=== PATIENT | female | born 1960 | race Caucasian/White ===

== ENCOUNTER 2017-04-27 13:36 | Observation (INO) | payer MEDICAID ==
[2017-04-27] MEDS ORDERED: ZOFRAN INJ 4 MG VIAL IVP PRN (13:59)
[2017-04-27] MEDS: NS 1000 ML 1,000 ML IV SCH (14:21)
[2017-04-27 14:38] LABS: BASOPHILS # (AUTO) 0.1 X10^3/uL (0.0-0.1); BASOPHILS % (AUTO) 0.9 % (0.2-1.0); EOSINOPHILS # (AUTO) 0.4 x10^3/uL (0.0-0.2); EOSINOPHILS % (AUTO) 5.1 % (0.9-2.9); HEMATOCRIT 34.6 % (36.0-47.0); HEMOGLOBIN 11.4 g/dL (12.0-16.0); LYMPHOCYTES # (AUTO) 1.9 X10^3/uL (1.3-2.9); LYMPHOCYTES % (AUTO) 23.3 % (21.0-51.0); MEAN CORPUSCULAR VOLUME 75.6 fL (80.0-100.0); MEAN PLATELET VOLUME 8.2 fL (7.4-11.0); MONOCYTES # (AUTO) 0.5 x10^3/uL (0.3-0.8); NEUTROPHILS # (AUTO) 5.3 x10^3/uL (2.2-4.8); NEUTROPHILS % (AUTO) 64.7 % (42.0-75.0); PLATELET COUNT 307 X10^3/uL (150.0-450.0); RED BLOOD COUNT 4.57 X10^6/uL (3.5-5.4); RED CELL DISTRIBUTION WIDTH 15.6 % (11.6-16.5); WHITE BLOOD COUNT 8.1 X10^3/uL (3.6-10.0)
[2017-04-27 14:44] LABS: CALCIUM 8.8 mg/dL (8.5-10.1); CARBON DIOXIDE 25.5 mmol/L (21-32); COR CA(FOR HYPOALB) 9.6 mg/dL (8.5-10.1); CREATININE 1.21 mg/dL (0.55-1.02); TOTAL PROTEIN 7.2 g/dL (6.4-8.2)
[2017-04-27] MEDS ORDERED: PREVNAR 13 IM ONE (14:55)
[2017-04-27 15:04] VITALS: BMI 49.3
[2017-04-27 15:12] LABS: HYPOCHROMASIA SLIGHT; PLATELET MORPHOLOGY COMMENT NORMAL (NORMAL)
[2017-04-27] MEDS: PROTONIX INJ 40 MG VIAL IVP SCH ×2 (15:46→20:42)
[2017-04-27 17:23] LABS: BILIRUBIN,URINE NEGATIVE (NEGATIVE); BLOOD/HEMOGLOBIN,URINE 1+ (NEGATIVE); GLUCOSE, URINE NEGATIVE (NEGATIVE); KETONES,URINE 1+ (NEGATIVE); LEUKOCYTE ESTERASE ,URINE 2+ (NEGATIVE); NITRITES,URINE NEGATIVE (NEGATIVE); PROTEIN,URINE 1+ (NEGATIVE); UROBILINOGEN,URINE NORMAL (NORMAL)
--- NOTE | 2017-04-27 17:53 | CT ---
HISTORY: Abdominal pain and nausea and vomiting Study: CT abdomen and pelvis without contrast Comparison: None Technique: Multiple axial images of the abdomen and pelvis were obtained from the lung bases to the pubic symph ysis without the administration of IV contrast. Sagittal and coronal reformations were provided. Findings: The visualized portions of the lung bases are unremarkable. The liver, spleen, pancreas, kidneys, a nd adrenal glands are unremarkable in their CT appearance. The gallbladder is surgically absent. The re is no biliary dilatation.. No significant mesenteric lymphadenopathy or stranding can be observe d. No free fluid or free air is seen within the abdomen. There is a left ventral abdominal hernia at the level of the anterior iliac crest through a defect in the abdominal wall measuring 2.5 centim eters in width . The hernia contains peritoneal fat. The appendix is surgically absent. The uterus is normal in size. There is no abnormal adnexal mass.. The colon is unremarkable. Specifically, th ere is no diverticulosis noted within the sigmoid colon. The urinary bladder is grossly unremarkable . The bony structures are grossly intact. IMPRESSION: 1. Left ventral abdominal hernia containing peritoneal fat Reported By:
[2017-04-27 17:55] LABS: APPEARANCE,URINE CLEAR (CLEAR); COLOR,URINE DARK YELLOW (YELLOW); RBC,URINE RARE /HPF (NEGATIVE)
[2017-04-27 17:56] LABS: BACTERIA,URINE TRACE /HPF (NEGATIVE); CALCIUM OXALATE CRYSTALS,UR MODERATE /HPF (NEGATIVE); SQUAMOUS EPITHELIAL CELL,UR RARE /HPF (NEGATIVE)
[2017-04-27] MEDS: NORCO 10/325 TAB PO PRN (19:32)
[2017-04-27] MEDS: NEURONTIN CAP 300 MG PO SCH (20:38)
[2017-04-27] MEDS: LOPRESSOR TAB 25 MG PO SCH (20:38)
[2017-04-27] MEDS: DIABETA PO SCH (20:42)
[2017-04-27] MEDS: WELLBUTRIN SR 150 MG (BID) PO SCH (20:42)
[2017-04-27] MEDS: VISTARIL PO SCH (20:42)
[2017-04-27] MEDS: PROVENTIL NEB TX 0.083% 2.5MG/ 3ML NEB SCH (20:56)
[2017-04-27] MEDS: PULMICORT NEB TX 0.5 MG NEB SCH (20:56)
[2017-04-27] MEDS ORDERED: ZOCOR TAB 20 MG PO SCH (21:00)
[2017-04-27] MEDS ORDERED: MORPHINE SULFATE INJ 2 MG IVP ONE (21:00)
[2017-04-27] MEDS ORDERED: DESYREL PO SCH (21:00)
[2017-04-27] MEDS: [UNRECOGNIZED DRUG - OTHER] PO SCH (21:03)
[2017-04-27] MEDS ORDERED: MORPHINE SULFATE INJ 2 MG ONE (21:06)
[2017-04-27] MEDS: CLEOCIN PO SCH (21:10)
[2017-04-27] MEDS: FLEXERIL TAB 10 MG PO SCH (21:10)
[2017-04-27] MEDS: XANAX PO SCH (21:10)
[2017-04-28] MEDS: CLEOCIN PO SCH ×2 (06:15→14:36)
[2017-04-28] MEDS: NS 1000 ML 1,000 ML IV SCH ×2 (06:16→09:45)
[2017-04-28] MEDS: FLEXERIL TAB 10 MG PO SCH ×2 (06:16→14:37)
[2017-04-28] MEDS: XANAX PO SCH ×2 (06:16→14:37)
[2017-04-28] MEDS ORDERED: GLUCOPHAGE ONE (08:13)
[2017-04-28] MEDS: PROTONIX INJ 40 MG VIAL IVP SCH (08:38)
[2017-04-28] MEDS: VISTARIL PO SCH ×3 (08:40→17:45)
[2017-04-28] MEDS: WELLBUTRIN SR 150 MG (BID) PO SCH (08:41)
[2017-04-28] MEDS: NEURONTIN CAP 300 MG PO SCH ×3 (08:41→17:45)
[2017-04-28] MEDS: LOPRESSOR TAB 25 MG PO SCH (08:41)
[2017-04-28] MEDS: DIABETA PO SCH (08:43)
[2017-04-28] MEDS: [UNRECOGNIZED DRUG - OTHER] PO SCH (08:45)
[2017-04-28] MEDS ORDERED: CIPRO TAB 500 MG PO ONE (08:48)
[2017-04-28] MEDS: NORCO 10/325 TAB PO PRN (08:58)
[2017-04-28] MEDS ORDERED: FOLIC ACID TAB 1 MG PO SCH (09:00)
[2017-04-28] MEDS ORDERED: ASPIRIN 81 MG CHEWTAB PO SCH (09:00)
[2017-04-28] MEDS ORDERED: ZYLOPRIM PO SCH (09:00)
[2017-04-28] MEDS ORDERED: GLUCOPHAGE PO SCH (09:00)
[2017-04-28] MEDS ORDERED: ZyrTEC TAB 10 MG PO SCH (09:00)
[2017-04-28] MEDS ORDERED: SYNTHROID 150 mcg TAB PO SCH (09:00)
[2017-04-28] MEDS ORDERED: ZOLOFT PO SCH (09:00)
[2017-04-28] MEDS: PULMICORT NEB TX 0.5 MG NEB SCH (09:06)
[2017-04-28] MEDS: PROVENTIL NEB TX 0.083% 2.5MG/ 3ML NEB SCH ×3 (09:06→16:26)
[2017-04-28] MEDS ORDERED: NS 1000 ML 1,000 ML ONE (09:34)
--- NOTE | 2017-04-28 10:53 | RAD ---
HISTORY: Nonhealing left foot wound Study: Left foot 2 views Comparison: None Findings: The bones are osteopenic. There is no evidence for fracture, lytic, or blastic lesion. No erosive ar thritis is present. Arthritic changes present in the tibiotalar joint likely degenerative in origin. There are no areas of abnormal periosteal reaction. No soft tissue gas is identified. There are no plain film findings to suggest osteomyelitis however if osteomyelitis is a strong clinical considera tion MRI with and without contrast would be of further diagnostic value. IMPRESSION: Osteopenia Degenerative arthritic change tibiotalar joint Reported By:
[2017-04-28] MEDS ORDERED: D50W ABBOJECT SYR ONE (11:40)
[2017-04-28] MEDS ORDERED: D50W ABBOJECT SYR IV ONE ×2 (11:51→14:58)
[2017-04-28] MEDS: D5 1/2 NS 1000 ML 1,000 ML IV SCH ×2 (11:55→12:06)
--- NOTE | 2017-04-28 15:41 | DR.H&P ---
H&P - History & Physical for Day of: H&P Date: 04/28/17 - Chief Complaint Chief Complaint: nausea, vomiting, and pain - Allergies Allergies/Adverse Reactions: Allergies Allergy/AdvReac Type Severity Reaction Status Date / Time MS No Known Drug Allergy Allergy Verified 04/27/17 13:55 [No Known Drug Allergy] - History of Present Illness History of Present Illness: 56 Y/O W/F ADMITTED WITH C/O UPPER ABD PAIN, NAUSEA VOMITTING ,AND FOOD INTOLERENCE. - Past Medical History Past Medical History: Arthritis, COPD, Diabetes, GERD, Hypertension Additional Medical History: MORBID OBESITY - Past Surgical History Surgical History: Appendectomy, Cholecystectomy, Ortho Surgery, Other - Family History Family Medical History: Diabetes Mellitus, Cancer, CA, Coronary Artery Disease, Heart Failure, Hypertension - Social History Does patient currently use any type of tobacco product: No Have you used tobacco products in the last 12 months: No Type of Tobacco Use: None Does any household member use tobacco: No Alcohol Use: None Drug Use: None - Medications Home Medications: Albuterol Sulfate [Proventil HFA Inhaler 6.7 gm] 90 mcg INH QID 04/27/17 [ History Confirmed 04/27/17] Allopurinol 300 mg PO DAILY 04/27/17 [History Confirmed 04/27/17] Alprazolam [Xanax] 0.5 mg PO TID 04/27/17 [History Confirmed 04/27/17] Aspirin [Aspirin 81 mg Chewtab] 81 mg PO DAILY 04/27/17 [History Confirmed 04/27] Bupropion HCl [Bupropion HCl Sr] 150 mg PO BID 04/27/17 [History Confirmed 04/27] Cetirizine HCl [All Day Allergy] 10 mg PO DAILY 04/27/17 [History Confirmed ] Ciprofloxacin-Ciprofloxacin Hc [Ciprofloxacin ER 500 mg] 1 tab PO BID 04/27/17 [ History Confirmed 04/27/17] Clindamycin HCl 300 mg PO TID 04/27/17 [History Confirmed 04/27/17] Cyclobenzaprine HCl [FLEXERIL 10 MG *] 10 mg PO TID 04/27/17 [History Confirmed 04/27/17] Fluticasone-Salmeterol [Advair Diskus 250-50 Mcg/Dose 14-dose] 1 puff IN BID [History Confirmed 04/27/17] Folic Acid [Folic Acid Tab 1 mg] 1 mg PO DAILY 04/27/17 [History Confirmed 04/27] Furosemide [Lasix] 40 mg PO BID 04/27/17 [History Confirmed 04/27/17] Gabapentin 900 mg PO QID 04/27/17 [History Confirmed 04/27/17] Glyburide 5 mg PO BID 04/27/17 [History Confirmed 04/27/17] Hydrocodone-Acet 10/325 mg [[place] 10/325 Tab] 1 tab PO Q4-6H PRN 04/27/17 [ History Confirmed 04/27/17] Hydroxyzine Pamoate 50 mg PO QID 04/27/17 [History Confirmed 04/27/17] Insulin Glargine (Lantus) [LANTUS INSULIN 10 ML VIAL *] 95 units SC HS 04/27/17 [History Confirmed 04/27/17] Levothyroxine Sodium 150 mcg PO DAILY 04/27/17 [History Confirmed 04/27/17] Meloxicam [Mobic Tab 15 mg] 15 mg PO DAILY 04/27/17 [History Confirmed 04/27/17] Metformin HCl [Glucophage] 500 mg PO DAILY 04/27/17 [History Confirmed 04/27/17] Metoprolol Tartrate [Lopressor Tab 25 mg] 12.5 mg PO BID 04/27/17 [History Confirmed 04/27/17] Nystatin (Topical) [Nystatin] 100,000 unit EX TID 04/27/17 [History Confirmed ] Omeprazole [Prilosec] 40 mg PO BID 04/27/17 [History Confirmed 04/27/17] Potassium Chloride [Potassium Chloride ER] 20 meq PO BID 04/27/17 [History Confirmed 04/27/17] Promethazine HCl [Phenergan] 25 mg VA Q4-6H PRN 04/27/17 [History Confirmed ] Ranitidine HCl [Ranitidine [address]] 300 mg PO BID 04/27/17 [History Confirmed 04/27/17] Sertraline HCl [Zoloft] 50 mg PO DAILY 04/27/17 [History Confirmed 04/27/17] Simvastatin 20 mg PO DAILY 04/27/17 [History Confirmed 04/27/17] Sucralfate [Carafate] 1 gm PO ACHS 04/27/17 [History Confirmed 04/27/17] Trazodone HCl [Desyrel] 150 mg PO HS 04/27/17 [History Confirmed 04/27/17] - Review of Systems Constitutional: Weakness, Malaise Eyes: No Symptoms Reported ENT: No Symptoms Reported Respiratory: Cough, Wheezing Cardiovascular: No Symptoms Reported Gastrointestinal: Nausea, Vomiting, Abdominal Pain Genitourinary: No Symptoms Reported Musculoskeletal: Back Pain, Foot Pain Skin: Wound Neurological: No Symptoms Reported - Physical Exam Vital Signs: Temperature 96.9 F Pulse Rate [Left Brachial] 86 Pulse Rate 72 Respiratory Rate 18 Blood Pressure [Left Arm] 91/54 O2 Sat by Pulse Oximetry 95 Oriented: Normal Eyes: Normal Ear: Normal Nose: Normal Throat: Normal Respiratory: Clear Throughout, LLL Exp. Wheeze Cardiovascular: Normal : Normal Auscultation: Bowel Sounds: Normal Palpation: Normal Tenderness: Normal, Epigastric Musculoskeletal: Foot Mood Description: Calm Affect: Normal Speech Pattern: Clear - Assessment/Plan (1) Epigastric abdominal pain Status: Resolved Plan: PLAN TO ADMIT. AMDISSION LABS, CBC, CMP, UA, . IV HYDRATION, PPI THERAPY, PAIN AND NAUSEA CONTROL, NPO PAST MIDNIGHT FOR EGD. RESP CONSULT FOR COPD MANAGEMENT AND BLOOD SUGAR CONTROL , RESUME HOME MEDS.
[2017-04-28] MEDS ORDERED: DIPRIVAN VIAL 20 ML ONE (15:56)
[2017-04-28 17:25] VITALS: BP 99/55
[2017-04-28] MEDS ORDERED: HEP LOCK NEONATE 10 UNITS/1 ML 5ML IVF ONE (18:22)
[2017-04-28] MEDS ORDERED: SNACK - Diabetic Appropriate PO SCH (20:00)
== END 2017-04-28 18:25 | disposition home or self-care (01) ==
LOC: OBS 13:36
PROVIDERS: ADMIT Internal Medicine; ATTEND Internal Medicine
PROC: 3E0234Z Introduction of Serum, Toxoid and Vaccine into Muscle, Percutaneous Approach (ICD-10-PCS; 2017-04-27)
PROC: 0DB68ZX Excision of Stomach, Via Natural or Artificial Opening Endoscopic, Diagnostic (ICD-10-PCS; principal; 2017-04-28 17:00)
DX: R11.2 Nausea with vomiting, unspecified (principal); R10.84 Generalized abdominal pain; M85.88 Other specified disorders of bone density and structure, other site; J44.9 Chronic obstructive pulmonary disease, unspecified; E11.65 Type 2 diabetes mellitus with hyperglycemia; K21.9 Gastro-esophageal reflux disease without esophagitis; Z79.4 Long term (current) use of insulin; I10 Essential (primary) hypertension; R10.13 Epigastric pain; B96.5 Pseudomonas (aeruginosa) (mallei) (pseudomallei) as the cause of diseases classified elsewhere; D64.89 Other specified anemias; R94.4 Abnormal results of kidney function studies; R26.89 Other abnormalities of gait and mobility; Z23 Encounter for immunization; K29.00 Acute gastritis without bleeding; K44.9 Diaphragmatic hernia without obstruction or gangrene
CPT/HCPCS: 36415; 73630; 74176; 80053; 81001; 82150; 83690; 85025; 87070; 87075; 87077; 87086; 87186; 87205; 94640; 97535; C9113; Q0177; S0106; 90670; A4217; G0378; J1642; J2270; J2405; J3490; J7042; J7613; J7626

== ENCOUNTER 2021-05-07 08:41 | Observation (INO) ==
[2021-05-07] MEDS ORDERED: NAROPIN 0.75% EPI ONE (10:27)
[2021-05-07] MEDS ORDERED: ANCEF 1 GRAM IV PREMIX* 2 G/100 ML BAG IV ONE (10:42)
[2021-05-07] MEDS ORDERED: LR 1000 ML IV 1,000 ML IV ONE (10:42)
[2021-05-07 10:55] VITALS: BMI 45.7
[2021-05-07] MEDS ORDERED: FENTANYL INJ 250 mcg ONE (14:45)
[2021-05-07] MEDS ORDERED: MARCAINE 0.25% INJ ONE (15:14)
[2021-05-07] MEDS ORDERED: SUPRANE ONE (15:20)
[2021-05-07] MEDS ORDERED: APRESOLINE INJ 20 MG VIAL ONE ×2 (15:20→15:28)
[2021-05-07] MEDS ORDERED: VERSED ONE (15:20)
[2021-05-07] MEDS ORDERED: ZOFRAN INJ 4 MG VIAL ONE (15:20)
[2021-05-07] MEDS ORDERED: DIPRIVAN VIAL ONE (15:20)
[2021-05-07] MEDS ORDERED: HYDROGEN PEROXIDE 3% ONE (17:20)
[2021-05-07] MEDS ORDERED: PHENERGAN INJ 25 MG IM PRN (17:34)
[2021-05-07] MEDS ORDERED: REGLAN INJ 10 MG VIAL IVP PRN (17:34)
[2021-05-07] MEDS ORDERED: ZOFRAN INJ 4 MG VIAL IVP PRN ×2 (17:34→17:55)
[2021-05-07] MEDS ORDERED: BARHEMSYS INJ IVP PRN (17:34)
[2021-05-07] MEDS ORDERED: BENADRYL INJ 50 MG VIAL IVP PRN (17:34)
[2021-05-07] MEDS: DILAUDID INJ IVP PRN ×4 (17:55→18:10)
[2021-05-07] MEDS: NS 1000 ML 1,000 ML IV SCH (18:50)
[2021-05-07] MEDS: COLACE CAP 100 MG PO SCH (20:06)
[2021-05-07] MEDS: PERCOCET TAB 5/325 MG PO PRN ×2 (20:06→23:45)
[2021-05-07] MEDS: DUONEB 0.5 MG/3 MG (3 mL) NEB SCH (20:40)
[2021-05-07] MEDS: PULMICORT NEB TX 0.5 MG NEB SCH (20:40)
[2021-05-08] MEDS: PERCOCET TAB 5/325 MG PO PRN ×2 (03:43→21:00)
[2021-05-08 05:42] LABS: CALCIUM 8.3 mg/dL (8.5-10.1); CARBON DIOXIDE 23.1 mmol/L (21-32); CREATININE 1.37 mg/dL (0.55-1.02)
[2021-05-08] MEDS: NS 1000 ML 1,000 ML IV SCH ×2 (06:59→21:00)
[2021-05-08] MEDS ORDERED: TORADOL 30 MG VIAL ONE (09:21)
[2021-05-08] MEDS ORDERED: TORADOL 30 MG VIAL IVP ONE ×2 (09:22→13:54)
[2021-05-08] MEDS: PULMICORT NEB TX 0.5 MG NEB SCH ×2 (09:37→21:20)
[2021-05-08] MEDS: DUONEB 0.5 MG/3 MG (3 mL) NEB SCH ×4 (09:37→21:20)
--- NOTE | 2021-05-08 14:55 | PCM.PROG ---
Progress Note Progress Note for Day of Date of Exam: 05/08/21 Subjective Subjective: Resting in bed c/o pain; unable to wt bear x 8 weeks; no cp, sob, abd pain, n/v/d. Past Medical Family Social History Past Med/Fam/Surg Hx: No changes since H&P Allergies: Allergies No Known Drug Allergies Allergy (Verified 05/07/21 10:31) Review of Systems ROS: No change since H&P Vital Signs and I&O's Vital Signs: Temperature 98.6 F Pulse Rate [Right Radial] 104 Pulse Rate 101 Respiratory Rate 20 Blood Pressure [Left Arm] 138/62 Blood Pressure 152/63 O2 Sat by Pulse Oximetry 97 Intake and Output: Intake & Output 05/05/21 05/06/21 05/07/21 05/08/21 23:59 23:59 23:59 23:59 Intake Total 2043 / 2043 574 / 574 Output Total 300 / 300 Balance 1743 / 1743 574 / 574 Physical Exam Oriented: Normal Eyes: Normal Ear: Normal Respiratory: Normal Cardiovascular: Normal Auscultation: Bowel Sounds: Normal Musculoskeletal: Right (rle in cast and elevated ) Mood Description: Calm Speech Pattern: Clear and Appropriate Laboratory and Diagnostics Result Diagrams: 05/08/21 04:25 05/08/21 04:25 Labs: Laboratory Sodium 137 mmol/L (136-145) 05/08/21 04:25 Corrected Sodium 139 mmol/L (136-145) 05/08/21 04:25 Potassium 4.7 mmol/L (3.5-5.1) 05/08/21 04:25 Chloride 103 mmol/L (98-107) 05/08/21 04:25 Carbon Dioxide 23.1 mmol/L (21-32) 05/08/21 04:25 BUN 18 mg/dL (7-18) 05/08/21 04:25 Creatinine 1.37 mg/dL (0.55-1.02) H 05/08/21 04:25 Est GFR (MDRD) Af Amer 51 (>60) L 05/08/21 04:25 Est GFR (MDRD) Non-Af 42 (>60) L 05/08/21 04:25 Glucose 171 mg/dL (65-99) H 05/08/21 04:25 Calcium 8.3 mg/dL (8.5-10.1) L 05/08/21 04:25 Plan (1) Hypertension, essential: Status: Acute Plan: Controlled; continue current mgmt. (2) Hypothyroidism, acquired: Status: Acute (3) Hyperlipidemia, mixed: Status: Acute (4) Type 2 diabetes mellitus: Status: Acute Plan: Follow and cover sugars as needed.
[2021-05-08] MEDS ORDERED: LOVENOX INJ 40 MG SYR SC ONE (16:33)
[2021-05-08] MEDS: LOVENOX INJ 40 MG SYR SC SCH (16:34)
[2021-05-08] MEDS: COLACE CAP 100 MG PO SCH (20:59)
[2021-05-08] MEDS: TYLENOL 325 MG TAB PO PRN (21:31)
[2021-05-09] MEDS: PERCOCET TAB 5/325 MG PO PRN (03:23)
[2021-05-09] MEDS: TYLENOL 325 MG TAB PO PRN ×2 (03:23→09:15)
[2021-05-09 08:10] VITALS: BP 196/90
[2021-05-09] MEDS: DUONEB 0.5 MG/3 MG (3 mL) NEB SCH (09:09)
[2021-05-09] MEDS: PULMICORT NEB TX 0.5 MG NEB SCH (09:09)
[2021-05-09] MEDS: LOVENOX INJ 40 MG SYR SC SCH (09:15)
--- NOTE | 2021-05-09 11:48 | W.DIS.FURT ---
Summary of Discharge Discharge Summary of Date Date of Exam: 05/09/21 Admission Diagnosis Hospital Course: Pt with degenerative arthritic change tibiotalar joint admitted for surgery on the rt foot. He did well with surgery and was subsequently discharged with appropriate follow up. Vital Signs: Vital Signs (72 hours) 05/07/21 10:32 05/07/21 17:45 05/07/21 17:50 Temperature 98.1 F 97 F L Pulse Rate 72 84 87 Pulse Rate [Right Radial] Respiratory Rate 18 16 16 Blood Pressure 198/74 113/58 131/68 Blood Pressure [Left Arm] O2 Sat by Pulse Oximetry 100 100 100 05/07/21 17:55 05/07/21 18:00 05/07/21 18:05 Temperature Pulse Rate 89 88 84 Pulse Rate [Right Radial] Respiratory Rate 16 16 16 Blood Pressure 144/65 151/63 142/70 Blood Pressure [Left Arm] O2 Sat by Pulse Oximetry 100 100 95 05/07/21 18:10 05/07/21 18:15 05/07/21 18:30 Temperature 98.0 F Pulse Rate 86 84 Pulse Rate [Right Radial] 88 Respiratory Rate 16 16 20 Blood Pressure 144/65 152/63 Blood Pressure [Left Arm] 146/67 O2 Sat by Pulse Oximetry 95 95 98 05/07/21 18:45 05/07/21 19:00 05/07/21 19:15 Temperature 98.1 F Pulse Rate Pulse Rate [Right Radial] 95 H 90 98 H Respiratory Rate 20 20 20 Blood Pressure Blood Pressure [Left Arm] 145/65 151/69 165/72 O2 Sat by Pulse Oximetry 98 96 98 05/07/21 19:30 05/07/21 20:06 05/07/21 20:30 Temperature 97.9 F Pulse Rate Pulse Rate [Right Radial] 94 H 96 H Respiratory Rate 20 20 20 Blood Pressure Blood Pressure [Left Arm] 146/65 147/75 O2 Sat by Pulse Oximetry 98 99 05/07/21 20:40 05/07/21 21:06 05/07/21 21:30 Temperature 98.0 F Pulse Rate 92 H Pulse Rate [Right Radial] 96 H Respiratory Rate 20 20 Blood Pressure Blood Pressure [Left Arm] 148/67 O2 Sat by Pulse Oximetry 98 98 05/07/21 22:30 05/07/21 23:30 05/07/21 23:45 Temperature 97.6 F Pulse Rate Pulse Rate [Right Radial] 80 81 Respiratory Rate 20 20 19 Blood Pressure Blood Pressure [Left Arm] 96/50 102/50 O2 Sat by Pulse Oximetry 97 98 05/08/21 00:45 05/08/21 03:43 05/08/21 04:00 Temperature 99.0 F Pulse Rate Pulse Rate [Right Radial] 103 H Respiratory Rate 20 21 18 Blood Pressure Blood Pressure [Left Arm] 161/80 O2 Sat by Pulse Oximetry 97 05/08/21 04:43 05/08/21 08:00 05/08/21 09:37 Temperature 98.5 F Pulse Rate 101 H Pulse Rate [Right Radial] 118 H Respiratory Rate 21 20 Blood Pressure Blood Pressure [Left Arm] 121/56 O2 Sat by Pulse Oximetry 97 98 05/08/21 10:33 05/08/21 11:03 05/08/21 12:00 Temperature 98.6 F Pulse Rate Pulse Rate [Right Radial] 104 H Respiratory Rate 18 18 20 Blood Pressure Blood Pressure [Left Arm] 138/62 O2 Sat by Pulse Oximetry 97 05/08/21 13:30 05/08/21 15:18 05/08/21 15:48 Temperature Pulse Rate 99 H Pulse Rate [Right Radial] Respiratory Rate 20 20 Blood Pressure Blood Pressure [Left Arm] O2 Sat by Pulse Oximetry 99 05/08/21 16:00 05/08/21 17:15 05/08/21 20:00 Temperature 99.0 F 98.9 F Pulse Rate 105 H Pulse Rate [Right Radial] 108 H 109 H Respiratory Rate 20 18 Blood Pressure Blood Pressure [Left Arm] 145/67 196/85 O2 Sat by Pulse Oximetry 98 98 94 L 05/08/21 21:00 05/08/21 21:20 05/08/21 21:31 Temperature Pulse Rate 101 H Pulse Rate [Right Radial] Respiratory Rate 20 20 Blood Pressure Blood Pressure [Left Arm] O2 Sat by Pulse Oximetry 98 05/08/21 22:00 05/08/21 22:05 05/08/21 22:31 Temperature Pulse Rate Pulse Rate [Right Radial] Respiratory Rate 20 20 Blood Pressure Blood Pressure [Left Arm] 181/77 O2 Sat by Pulse Oximetry 05/09/21 00:00 05/09/21 03:23 05/09/21 04:00 Temperature 98.0 F 99.4 F Pulse Rate Pulse Rate [Right Radial] 104 H 93 H Respiratory Rate 20 20 18 Blood Pressure Blood Pressure [Left Arm] 144/72 151/82 O2 Sat by Pulse Oximetry 95 97 05/09/21 04:23 05/09/21 08:00 05/09/21 09:09 Temperature 99.8 F H Pulse Rate 105 H Pulse Rate [Right Radial] 96 H Respiratory Rate 20 18 Blood Pressure Blood Pressure [Left Arm] 196/90 O2 Sat by Pulse Oximetry 94 L 93 L 05/09/21 09:15 05/09/21 10:15 Temperature Pulse Rate Pulse Rate [Right Radial] Respiratory Rate 20 20 Blood Pressure Blood Pressure [Left Arm] O2 Sat by Pulse Oximetry Labs: Laboratory Last Values Sodium 137 mmol/L (136-145) 05/08/21 04:25 Corrected Sodium 139 mmol/L (136-145) 05/08/21 04:25 Potassium 4.7 mmol/L (3.5-5.1) 05/08/21 04:25 Chloride 103 mmol/L (98-107) 05/08/21 04:25 Carbon Dioxide 23.1 mmol/L (21-32) 05/08/21 04:25 BUN 18 mg/dL (7-18) 05/08/21 04:25 Creatinine 1.37 mg/dL (0.55-1.02) H 05/08/21 04:25 Est GFR (MDRD) Af Amer 51 (>60) L 05/08/21 04:25 Est GFR (MDRD) Non-Af 42 (>60) L 05/08/21 04:25 Glucose 171 mg/dL (65-99) H 05/08/21 04:25 Calcium 8.3 mg/dL (8.5-10.1) L 05/08/21 04:25 Impression: Feeling well this morning and "ready to go yesterday"; denies cp, sob, abd pain, n/v/d. A/O x 4, speech wnl; rle elevated on pillow; rrr, cta bilaterally anteriorly. Reason For Visit: LEFT TALECTOMY WITH HIND FOOT AND MID FOOT FUSION Discharge Diagnosis All Active Problems (Updated 05/09/21 @ 11:43 by Penelope Vasquez) Type 2 diabetes mellitus (Chronic) Hyperlipidemia, mixed (Chronic) Hypothyroidism, acquired (Chronic) Hypertension, essential (Chronic) Plan of Treatment: Continue with present treatment and follow up plan. Pt is to keep follow up appointment as instructed and take medications as ordered. Discharge Medications Discharge Medications: No Known Drug Allergies Allergy (Verified 05/07/21 10:31) CONTINUE taking the following medications hydroxyzine HCl 50 mg PO QID PRN 05/07/21 [History] sucralfate 1 g PO QID 05/07/21 [History] New Prescriptions enoxaparin [Lovenox] 40 mg SUBCUT DAILY #30 ml 05/09/21 [Rx] ondansetron HCl [Zofran] 8 mg PO BID PRN #30 tab 05/09/21 [Rx] oxycodone-acetaminophen [Percocet] 1 tab PO Q4H PRN #36 tab MDD 4 05/09/21 [Rx] Discharge Plan Discharge Plan Hospital Course: Pt with degenerative arthritic change tibiotalar joint admitted for surgery on the rt foot. He did well with surgery and was subsequently discharged with appropriate follow up. Patient Disposition: HOME HEALTH SERVICE Condition: Stable Health Concerns: Post Hospitalization: new medications and changes needed to prevent readmission or further decline. Pt educated and given instructions on all concerns. Care Plan Goals: Problem: Pain/Alteration in Comfort Goal: Improve/ Resolve Pain; Achieve Pain Tolerance Instructions: Take pain medications as prescribed. Contact your primary care provider if your pain is unrelieved or worsens. Follow up with primary care provider as directed. Plan of Treatment: Continue with present treatment and follow up plan. Pt is to keep follow up appointment as instructed and take medications as ordered. Prescriptions: New enoxaparin [Lovenox] 40 mg/0.4 mL Syringe 40 mg SUBCUT DAILY Qty: 30 RF: 0 ondansetron HCl [Zofran] 4 mg Tablet 8 mg PO BID PRNQty: 30 RF: 0 oxycodone-acetaminophen [Percocet] 5-325 mg Tablet 1 tab PO Q4H MDD 4 PRNQty: 36 RF: 0 No Action omeprazole 20 MG capsule,delayed release(DR/EC) 40 mg PO BID RF: 0 aspirin 81 MG tablet,chewable 81 mg PO DAILY RF: 0 potassium chloride 20 MEQ tablet extended release 20 meq PO BID RF: 0 furosemide 40 MG tablet 40 mg PO BID RF: 0 metformin 500 MG tablet 500 mg PO BID RF: 0 Lantus U-100 Insulin 100 UNITS/ML solution 100 units SC PRN PRNRF: 0 trazodone 50 MG tablet 150 mg PO HS RF: 0 glyburide 5 MG tablet 5 mg PO BID RF: 0 meloxicam 15 MG tablet 15 mg PO DAILY RF: 0 alprazolam [Xanax] 0.5 MG tablet 0.5 mg PO BID RF: 0 simvastatin 20 MG tablet 20 mg PO DAILY RF: 0 levothyroxine 150 MCG tablet 175 mcg PO DAILY RF: 0 gabapentin 300 MG capsule 900 mg PO QID RF: 0 folic acid 1 MG tablet 1 mg PO DAILY RF: 0 albuterol sulfate [Proventil HFA] 108 MCG/ACT HFA aerosol inhaler 90 mcg INH PRN PRNRF: 0 metoprolol tartrate 25 MG tablet 25 mg PO BID RF: 0 sucralfate 1 gram Tablet 1 g PO QID RF: 0 hydroxyzine HCl 50 mg Tablet 50 mg PO QID PRNRF: 0 Follow ups/Referrals Follow ups/Referrals: EDISON COLE [Primary Care Provider] - 1 WEEK Instructions Instructions: Arthroscopic Ankle Fusion, Care After Stand Alone Forms: Excuse From Work or School, Precautions for COVID19, Patient Portal, Social Distancing
[2021-05-09] MEDS: NS 1000 ML 1,000 ML IV SCH (11:57)
== END 2021-05-09 12:35 | disposition home health service (06) ==
LOC: SURG1 08:41 → MED/SURG 08:41 → EDSTATUS 14:45 → MED/SURG 18:39
PROVIDERS: ADMIT Podiatrist; ATTEND Obstetrics & Gynecology Obstetrics
PROC: MIDFOOT (2021-05-07 14:55)
DX: E03.8 Other specified hypothyroidism; M21.542 Acquired clubfoot, left foot; R52 Pain, unspecified; I10 Essential (primary) hypertension; E11.65 Type 2 diabetes mellitus with hyperglycemia; E78.2 Mixed hyperlipidemia; M21.6X2 Other acquired deformities of left foot

== ENCOUNTER 2024-04-12 11:14 | Inpatient (IN) ==
--- NOTE | 2024-04-12 12:35 | NOTE.SOAP ---
Soap Note Note for Day of Date of Exam: 04/12/24 Subjective Data Subjective Data: 63F wellknown to our services for a left heel wound, she came to the office today for an arterial doppler. The wound worsened in size and presentation. Her SANTOSH of her LLE was 2.15 and her foot is very cold. She was recommended to come to the hospital for further evaluation and possible vascular intervention. She is experiencing pain from her posterior hip down to her foot. Objective Data Objective Data: Partial thickness bulla on the lateral aspect of her left heel. Stable and just serous. No signs of infection including purulence, erythema or crepitus. Nonpalpable pulses to the left lower extremity. Gross epicritic and protective sensation intact Assessment Assessment: - Decubitus ulcer, left heel - Critical limb ischemia - PAD - DM Plan Plan: Patient was seen bedside this afternoon. Diagnosis and treatment discussed in detail with patient. I debrided the overlying tissue over the blister and exposed the fresh tissue; wound is partial thickness and does not expose any deep structures. Continue meds. Stat CTA with runoff ordered. Pending labs. Heel must be offloaded at alll times with two pillows under the knee. Wound dressed with betadine adaptic DSD; change every other day. Pending results from CTA and will speak to vascular once results are received
[2024-04-12 12:47] LABS: BASOPHILS # (AUTO) 0.1 X10^3/uL (0.0-0.1); BASOPHILS % (AUTO) 1.3 % (0.2-1.0); EOSINOPHILS # (AUTO) 0.3 x10^3/uL (0.0-0.2); EOSINOPHILS % (AUTO) 3.8 % (0.9-2.9); HEMATOCRIT 33.1 % (36.0-47.0); HEMOGLOBIN 10.2 g/dL (12.0-16.0); LYMPHOCYTES # (AUTO) 0.8 X10^3/uL (1.3-2.9); LYMPHOCYTES % (AUTO) 10.7 % (21.0-51.0); MEAN CORPUSCULAR HEMOGLOBIN 24.5 pg (27.0-34.0); MEAN CORPUSCULAR HGB CONC 30.9 g/dL (33.0-35.0); MEAN CORPUSCULAR VOLUME 79.1 fL (80.0-100.0); MEAN PLATELET VOLUME 7.4 fL (7.4-11.0); MONOCYTES # (AUTO) 0.5 x10^3/uL (0.3-0.8); MONOCYTES % (AUTO) 6.5 % (0.0-13.0); NEUTROPHILS # (AUTO) 5.6 x10^3/uL (2.2-4.8); NEUTROPHILS % (AUTO) 77.7 % (42.0-75.0); PLATELET COUNT 372 X10^3/uL (150.0-450.0); RED BLOOD COUNT 4.19 X10^6/uL (3.5-5.4); RED CELL DISTRIBUTION WIDTH 24.5 % (11.6-16.5); WHITE BLOOD COUNT 7.2 X10^3/uL (3.6-10.0)
[2024-04-12 12:55] LABS: ALBUMIN 2.5 g/dL (3.4-5.0); CALCIUM 9.3 mg/dL (8.5-10.1); CARBON DIOXIDE 19.5 mmol/L (21-32); COR CA(FOR HYPOALB) 10.5 mg/dL (8.5-10.1); CREATININE 1.6 mg/dL (0.55-1.02); POTASSIUM 3.9 mmol/L (3.5-5.1); TOTAL PROTEIN 7.6 g/dL (6.4-8.2)
[2024-04-12 13:22] VITALS: BMI 45.9
[2024-04-12 13:28] LABS: ANISOCYTOSIS 3+; HYPOCHROMASIA SLIGHT; MICROCYTOSIS SLIGHT; PLATELET MORPHOLOGY COMMENT NORMAL (NORMAL)
[2024-04-12] MEDS: NORCO 10/325 TAB PO PRN (14:02)
[2024-04-12] MEDS ORDERED: PHARMACY CONSULT - VANCOMYCIN XX SCH (16:00)
[2024-04-12] MEDS: VANCOMYCIN IV *PREMIX 1.5 G/300 ML BAG 1.5 G/300 ML PIGGYBACK IV ONE (16:07)
[2024-04-12] MEDS: NS 250 ML IV 250 ML IV ONE (16:07)
[2024-04-12] MEDS: CARAFATE PO SCH (16:44)
[2024-04-12] MEDS: NEURONTIN CAP 300 MG PO SCH (16:44)
[2024-04-12] MEDS: VISTARIL PO SCH (16:45)
--- NOTE | 2024-04-12 16:49 | VAS ---
EXAM:ANKLE BRACHIAL INDEXHISTORY:DIABETES, HEART DISEASE LLE CRITICAL ISHEMIA, LEFT HEEL ULCER ; LLE CRITICAL ISHEMIA, LEFT HEEL ULCERCOMPARISON:NoneTECHNIQUE:Multi-segm ental arterial pressure with PVR wave form of the right lower extremity. Left SANTOSH was refused due to patient discomfort.FINDINGS:RIGHTThe right brachial segmental pressure mmHg is 196.The right thigh segmental pressure mmHg is 79 and the index is 0.40; waveform analysis is monophasic.The right calf segmental pressure mmHg is 146 and the index is 0.74; waveform analysis is monophasic.The right dorsalis pedis mmHg is 142 and the index is 0.72; waveform analysis is monophasic.The right posterior tibial mmHg is 69 and the index is 0.35; waveform analysis is monophasic.IMPRESSION:Right: 0.72THIS IS AN ELECTRONICALLY VERIFIED FINAL REPORT04/12/2024 4:46 PM - Electronically signed by Rock Cisse MD
[2024-04-12] MEDS: NovoLIN R (or HumuLIN R) SUBCUT PRN (17:27)
[2024-04-12] MEDS: K-DUR TAB 20 MEQ PO SCH (21:16)
[2024-04-12] MEDS: AMBIEN PO SCH (21:16)
[2024-04-12] MEDS: ZANAFLEX PO SCH (21:17)
[2024-04-12] MEDS: WELLBUTRIN SR 150 MG (BID) PO SCH (21:17)
[2024-04-12] MEDS: BRILINTA PO SCH (21:17)
[2024-04-12] MEDS: SNACK - Diabetic Appropriate PO SCH (21:55)
[2024-04-12] MEDS: NS 1,000 ML IV 1,000 ML IV SCH (22:10)
[2024-04-12] MEDS: LOVENOX INJ 80 MG SYR SC SCH (22:20)
[2024-04-12] MEDS: DILAUDID INJ IVP PRN (22:21)
--- NOTE | 2024-04-12 23:08 | NOTE.SOAP ---
Soap Note Note for Day of Date of Exam: 04/12/24 Subjective Data Subjective Data: 63 year old female with history of diabetes amd hypertension who has had complaints of rest pain of the left foot over the last several weeks with cool feet bilaterally and now a wound to the left heel. Pulse volume recordings performed in Dr. Chavarria's office consistent with calcified vessels of the left leg making it difficult to assess. Patient had ankle indices obtained to the right leg with thigh index of 0.4 on the right side. Patient refused studies of the left side due to pain , CT angiogram not obtained due to elevated creatinine of 1.6. . Objective Data Temperature: 98.3 F Pulse Rate: 96 Respiratory Rate: 19 Blood Pressure: 153/70 O2 Sat by Pulse Oximetry: 100 Objective Data: cool feet b/l with blister left heel , unroofed by Podiatry Assessment Assessment: critical ischemia both legs, worse on left Plan Plan: Hydrate, pain control, therapuetic LOvenox. Will try and see if we can get the creatinine down with hydration to do CTA and if not will do on table arteriogram to limit dye and perform arterial intervention of the left leg as appropriate. Right leg will alos require the same in the near future
[2024-04-13 05:20] LABS: CALCIUM 8.6 mg/dL (8.5-10.1); CARBON DIOXIDE 18.7 mmol/L (21-32); CREATININE 1.56 mg/dL (0.55-1.02)
[2024-04-13] MEDS: SYNTHROID 100 mcg TAB PO SCH (06:02)
--- NOTE | 2024-04-13 08:00 | VAS ---
EXAM:LOWER EXT ARTERIALHISTORY:DIABETES, HEART DISEASE; LLE CRITICAL ISHEMIA, LEFT HEEL ULCER -COMPARISON:None.TECHNIQUE:Multiple scott scale and color flow Doppler images of the right and left lower extremity arterial system were obtained. Interrogation of the common femoral artery, superficial femoral artery, popliteal artery, and tibial arteries was performed.FINDINGS:Abnormal monophasic waveforms consistent with peripheral vascular disease are demonstrated throughout the left lower extremity, and within the right lower extremity from the distal popliteal artery through the distal branches of the lower leg. Multiphasic waveforms are demonstrated within the right upper leg.Right extremity:Common femoral : 186 cm/sSuperficial femoral proximal: 197 cm/sSuperficial femoral mid: 136 cm/sSuperficial femoral distal : 117 cm/sPopliteal : 107-123 cm/sPosterior tibial : 34 cm/s-please note that flow is not identified within the proximal right [employer].Anterior tibial/dorsalis pedis: 131 cm/sLeft extremity:Common femoral : 73 cm/sSuperficial femoral proximal: 71 cm/sSuperficial femoral mid: 40 cm/sSuperficial femoral distal :20 cm/sPopliteal : 19-42 cm/sPosterior tibial : 17 cm/s please note that flow is not identified within the proximal left posterior tibial artery.Anterior tibial/dorsalis pedis: 22 cm/sIMPRESSION:Abnormal monophasic waveforms and low flow velocities throughout the left lower extremity in keeping with advanced stages of peripheral vascular disease. Please note that no flow is documented within the proximal left posterior tibial arteryMixed multiphasic and monophasic waveforms of the right lower extremity with elevated flow velocities in the common femoral artery and superficial femoral artery, suggesting multifocal, moderate intervening stenosis. Please note that flow is documented within the proximal posterior tibial artery and low flow velocities are seen within the mid to distal right [employer] segments.THIS IS AN ELECTRONICALLY VERIFIED FINAL REPORT04/13/2024 7:57 AM - Electronically signed by Toni Zimmer MD
[2024-04-13] MEDS: VANCOMYCIN IV *PREMIX 1 G/200 ML BAG 1 G/200 ML PIGGYBACK IV SCH (08:46)
[2024-04-13] MEDS: BACTROBAN TOPICAL OINT TOP SCH (08:47)
[2024-04-13] MEDS: PriLOSEC PO SCH (08:48)
[2024-04-13] MEDS: COZAAR PO SCH (08:48)
[2024-04-13] MEDS: FARXIGA PO SCH (08:49)
[2024-04-13] MEDS: ZYLOPRIM PO SCH (08:50)
[2024-04-13] MEDS: OXYBUTYNIN CHLORIDE ER PO SCH (08:51)
[2024-04-13] MEDS: LIPITOR TAB 80 MG PO SCH (08:51)
[2024-04-13] MEDS: AMARYL TAB 4 MG PO SCH (08:51)
[2024-04-13] MEDS: BUTT CREAM (COMPOUND) ONE (08:52)
[2024-04-13] MEDS: TOPROL XL PO SCH (09:35)
[2024-04-13] MEDS: FINERENONE 20 MG PO SCH (09:38)
[2024-04-13] MEDS: [UNRECOGNIZED DRUG - OTHER] PO SCH (09:38)
--- NOTE | 2024-04-13 10:09 | NOTE.SOAP ---
Soap Note Note for Day of Date of Exam: 04/13/24 Subjective Data Subjective Data: Patient seen this am; mainly complaining of pain in the posterior hip area down to the popliteal posteriorly (hamstring area). Heel is painful as well. Otherwise no constitutional symptoms Objective Data Objective Data: Nonstageable pressure ulcer with overlying escar. Dry and stable. No signs of infection including purulence, erythema or crepitus. Nonpalpable pulses to the left lower extremity. LLE is warm to cold from proximal to distal. Palpable knot near the IT band. Gross epicritic and protective sensation intact Assessment Assessment: - Decubitus ulcer, left heel - Critical limb ischemia - PAD - DM Plan Plan: Patient was seen bedside this afternoon. Diagnosis and treatment discussed in detail with patient. Wound dressed with mupirocin gauze. Continue meds. Stat CTA with runoff ordered; pending creatinine to go down. Heel must be offloaded at alll times with two pillows under the knee. Please change dressing daily with mupirocin, gauze, webril and light homa wrap. Pending results from CTA and will speak to vascular once results are received
[2024-04-14 05:25] LABS: BASOPHILS # (AUTO) 0.1 X10^3/uL (0.0-0.1); EOSINOPHILS # (AUTO) 0.3 x10^3/uL (0.0-0.2); EOSINOPHILS % (AUTO) 4.4 % (0.9-2.9); HEMATOCRIT 32.3 % (36.0-47.0); HEMOGLOBIN 9.8 g/dL (12.0-16.0); LYMPHOCYTES % (AUTO) 13.2 % (21.0-51.0); MEAN CORPUSCULAR HEMOGLOBIN 24.5 pg (27.0-34.0); MEAN CORPUSCULAR HGB CONC 30.5 g/dL (33.0-35.0); MEAN CORPUSCULAR VOLUME 80.4 fL (80.0-100.0); MEAN PLATELET VOLUME 7.2 fL (7.4-11.0); MONOCYTES # (AUTO) 0.6 x10^3/uL (0.3-0.8); MONOCYTES % (AUTO) 8.7 % (0.0-13.0); NEUTROPHILS # (AUTO) 5.3 x10^3/uL (2.2-4.8); NEUTROPHILS % (AUTO) 72.7 % (42.0-75.0); PLATELET COUNT 418 X10^3/uL (150.0-450.0); RED BLOOD COUNT 4.02 X10^6/uL (3.5-5.4); RED CELL DISTRIBUTION WIDTH 24.5 % (11.6-16.5); WHITE BLOOD COUNT 7.3 X10^3/uL (3.6-10.0)
[2024-04-14 05:35] LABS: ALBUMIN 2.4 g/dL (3.4-5.0); CALCIUM 8.8 mg/dL (8.5-10.1); CARBON DIOXIDE 22.2 mmol/L (21-32); COR CA(FOR HYPOALB) 10.1 mg/dL (8.5-10.1); CREATININE 1.62 mg/dL (0.55-1.02); POTASSIUM 4.4 mmol/L (3.5-5.1)
[2024-04-14 06:01] LABS: ANISOCYTOSIS 3+; HYPOCHROMASIA SLIGHT; PLATELET MORPHOLOGY COMMENT NORMAL (NORMAL)
[2024-04-14 07:35] LABS: CREATININE 1.62 mg/dL (0.55-1.02)
[2024-04-14 07:52] LABS: VANCOMYCIN,TROUGH 22.4 ug/mL (15-20)
[2024-04-14] MEDS ORDERED: PHARMACY COMMENT IV ONE (08:30)
--- NOTE | 2024-04-14 11:40 | NOTE.SOAP ---
Soap Note Note for Day of Date of Exam: 05/13/24 Subjective Data Subjective Data: Patient still unchanged . Creatinine not changed despite IV hydration. Cr= 1.62 Objective Data Temperature: 99.4 F Pulse Rate: 83 Respiratory Rate: 18 Blood Pressure: 134/72 O2 Sat by Pulse Oximetry: 99 Objective Data: Unchanged exam by Dr Hernandes note Assessment Assessment: Continue IV fluids and therapuetic Lovenox Plan Plan: Still hope to perform CTA , but if creatinine does not change will need on table arteriogram and appropriate arterial intervention.
[2024-04-14] MEDS ORDERED: VANCOMYCIN IV *PREMIX 1.5 G/300 ML BAG 1.5 G/300 ML PIGGYBACK IV SCH (13:00)
[2024-04-14] MEDS: NYSTATIN POWDER TOP SCH (18:13)
[2024-04-14] MEDS: VANCOMYCIN IV *PREMIX 750 mg/150 ML BAG 750 MG/150 ML PIGGYBACK IV SCH (21:17)
--- NOTE | 2024-04-15 00:01 | DR.H&P ---
H&P History & Physical for Day of: H&P Date: 04/13/24 Chief Complaint Chief Complaint: Non healing wound to the left heel. Rest pain left leg. History of Present Illness History of Present Illness: 63 yo femalewith rest pain left leg with non healing wound to the left heel. Histroy of diabetes and has had coronary stents pl aced 5 years ago after evaluation for SOB revealed significant coronary artery disease . Has has multiple operations both ankles and has metal left ankle and right knee after knee replacement. Hx of chronic renal disease , not on dialysis, being followed. Could not have CTA due to creartinine clearance, Dopplers done of right leg with probalble right common femoral or proximal right SFA occlusion. Past Medical History Past Medical History: Arthritis, COPD, Diabetes, GERD and Hypertension Additional Medical History: MORBID OBESITY Past Surgical History Surgical History: Appendectomy, Cholecystectomy, APPELLATE [employer] Surgery, Hysterectomy and Ortho Surgery Family History Family Medical History: Diabetes Mellitus, Cancer, [place] and Hypertension Social History Does patient currently use any type of tobacco product: No Medications Home Medications: Home Medications Medication Instructions Recorded Confirmed Type gabapentin 300 mg capsule 900 mg PO QID 04/27/17 04/12/24 History potassium chloride 20 mEq 20 meq PO BID 04/27/17 04/12/24 History tablet,extended release sucralfate 1 gram tablet 1 g PO QID 05/07/21 04/12/24 History allopurinol 100 mg tablet 100 mg PO QDAY 04/12/24 04/12/24 History atorvastatin 80 mg tablet 80 mg PO QDAY 04/12/24 04/12/24 History bempedoic acid 180 mg-ezetimibe 10 1 tab PO QDAY 04/12/24 04/12/24 History mg tablet (Nexlizet) bupropion HCl 150 mg tablet,12 hr 150 mg PO BID 04/12/24 04/12/24 History sustained-release dapagliflozin propanediol 10 mg 10 mg PO QDAY 04/12/24 04/12/24 History tablet (Farxiga) finerenone 20 mg tablet (Kerendia) 20 mg PO QDAY 04/12/24 04/12/24 History glimepiride 4 mg tablet 4 mg PO QDAY 04/12/24 04/12/24 History hydrocodone 10 mg-acetaminophen 1 tab PO Q4H PRN Pain 04/12/24 04/12/24 History 325 mg tablet hydroxyzine pamoate 50 mg capsule 50 mg PO QID 04/12/24 04/12/24 History levothyroxine 200 mcg tablet 200 mcg PO QDAY 04/12/24 04/12/24 History losartan 100 mg tablet 100 mg PO QDAY PRN Hypertension 04/12/24 04/12/24 History metoprolol succinate 25 mg 25 mg PO QDAY 04/12/24 04/12/24 History tablet,extended release 24 hr omeprazole 40 mg capsule,delayed 40 mg PO QDAY 04/12/24 04/12/24 History release oxybutynin chloride 5 mg 5 mg PO QDAY 04/12/24 04/12/24 History tablet,extended release 24 hr ticagrelor 90 mg tablet (Brilinta) 90 mg PO BID 04/12/24 04/12/24 History tizanidine 4 mg tablet 4 mg PO QHS 04/12/24 04/12/24 History zolpidem 5 mg tablet 5 mg PO QPM 04/12/24 04/12/24 History Allergies Allergies Allergy/AdvReac Type Severity Reaction Status Date / Time No Known Drug Allergies Allergy Verified 04/12/24 14:23 Labs 04/14/24 05:02 04/14/24 07:01 Labs: Laboratory WBC 7.3 X10^3/uL (3.6-10.0) 04/14/24 05:02 RBC 4.02 X10^6/uL (3.5-5.4) 04/14/24 05:02 Hgb 9.8 g/dL (12.0-16.0) L 04/14/24 05:02 Hct 32.3 % (36.0-47.0) L 04/14/24 05:02 MCV 80.4 fL (80.0-100.0) 04/14/24 05:02 MCH 24.5 pg (27.0-34.0) L 04/14/24 05:02 MCHC 30.5 g/dL (33.0-35.0) L 04/14/24 05:02 RDW 24.5 % (11.6-16.5) H 04/14/24 05:02 Plt Count 418 X10^3/uL (150.0-450.0) 04/14/24 05:02 Plt Count Comment Adequate (ADEQUATE) 04/14/24 05:02 MPV 7.2 fL (7.4-11.0) L 04/14/24 05:02 Neut % (Auto) 72.7 % (42.0-75.0) 04/14/24 05:02 Lymph % (Auto) 13.2 % (21.0-51.0) L 04/14/24 05:02 [place] % (Auto) 8.7 % (0.0-13.0) 04/14/24 05:02 Eos % (Auto) 4.4 % (0.9-2.9) H 04/14/24 05:02 Baso % (Auto) 1.0 % (0.2-1.0) 04/14/24 05:02 Neut # (Auto) 5.3 x10^3/uL (2.2-4.8) H 04/14/24 05:02 Lymph # (Auto) 1.0 X10^3/uL (1.3-2.9) L 04/14/24 05:02 [place] # (Auto) 0.6 x10^3/uL (0.3-0.8) 04/14/24 05:02 Eos # (Auto) 0.3 x10^3/uL (0.0-0.2) H 04/14/24 05:02 Baso # (Auto) 0.1 X10^3/uL (0.0-0.1) 04/14/24 05:02 Absolute Nucleated RBC 0.1 /100WBC 04/14/24 05:02 Plt Morphology Comment Normal (NORMAL) 04/14/24 05:02 RBC Morphology Abnormal (NORMAL) A 04/14/24 05:02 Hypochromasia Slight A 04/14/24 05:02 Anisocytosis 3+ A 04/14/24 05:02 Microcytosis Slight A 04/12/24 12:30 Sodium 140 mmol/L (136-145) 04/14/24 05:02 Corrected Sodium 142 mmol/L (136-145) 04/14/24 05:02 Potassium 4.4 mmol/L (3.5-5.1) 04/14/24 05:02 Chloride 107 mmol/L (98-107) 04/14/24 05:02 Carbon Dioxide 22.2 mmol/L (21-32) 04/14/24 05:02 BUN 20 mg/dL (7-18) H 04/14/24 05:02 Creatinine 1.62 mg/dL (0.55-1.02) H 04/14/24 07:01 Est GFR (MDRD) Af Amer 41 (>60) L 04/14/24 05:02 Est GFR (MDRD) Non-Af 34 (>60) L 04/14/24 05:02 Glucose 200 mg/dL (65-99) H 04/14/24 05:02 POC Glucose (mg/dL) 210 mg/dL (65-99) H 04/14/24 19:24 Calcium 8.8 mg/dL (8.5-10.1) 04/14/24 05:02 Corrected Calcium 10.1 mg/dL (8.5-10.1) 04/14/24 05:02 Total Bilirubin 0.30 mg/dL (0.2-1.0) 04/14/24 05:02 AST 20 Units/L (15-37) 04/14/24 05:02 ALT 15 Units/L (12-78) 04/14/24 05:02 Alkaline Phosphatase 113 Units/L (46-116) 04/14/24 05:02 Total Protein 7.0 g/dL (6.4-8.2) 04/14/24 05:02 Albumin 2.4 g/dL (3.4-5.0) L 04/14/24 05:02 Globulin 4.6 g/dL (2.5-4.5) H 04/14/24 05:02 Albumin/Globulin Ratio 0.5 Ratio (1.1-2.1) L 04/14/24 05:02 Vancomycin Trough 22.4 ug/mL (15-20) H* 04/14/24 07:01 Review of Systems Constitutional: See HPI Eyes: No Symptoms Reported ENT: No Symptoms Reported Respiratory: No Symptoms Reported Cardiovascular: See HPI Gastrointestinal: No Symptoms Reported Genitourinary: No Symptoms Reported Musculoskeletal: No Symptoms Reported Skin: Other (notes "knots" of pannus and upper thighs) Neurological: No Symptoms Reported Physical Exam Vital Signs: Vital Signs Temperature 98.2 F Temperature 97.9 F Pulse Rate [Left] 91 Pulse Rate [Left] 95 Respiratory Rate 20 Respiratory Rate 22 Respiratory Rate 21 Respiratory Rate 22 Respiratory Rate 18 Respiratory Rate 18 Respiratory Rate 18 Respiratory Rate 18 Respiratory Rate 20 Blood Pressure [Right Arm] 137/65 Blood Pressure [Left Arm] 130/81 O2 Sat by Pulse Oximetry 98 O2 Sat by Pulse Oximetry 97 Oriented: Normal, Time, Person and Place Eyes: Normal Ear: Normal Nose: Normal Throat: Normal Respiratory: Clear Throughout Cardiovascular: Normal and Other (palapble right femoral pulse, no pulse left femoral area, no pulses distally either ankle , left calf warm, left foot cool, moves all toes well. ) : Normal Auscultation: Bowel Sounds: Normal Palpation: Normal Tenderness: Normal Skin: Other (3cm blister left heel, now decompressed with 3 cm area of devitalized tisue left plantar heel. " knots" that she describes is edema probably related to chronic renal insufficiency) Musculoskeletal: Normal (With exception of muliple b/l ankle surgeries ) Psychiatric: Normal Affect: Normal Speech Pattern: Clear and Appropriate Assessment/Plan (1) Atherosclerosis of [place] arteries of extremities with rest pain, left leg: Status: Acute Plan: Continue IV antibiotics. If unable to get creatinine down to allow for CTA will plan on table arteriogram with the left leg and appropriate intervention. (2) Atherosclerosis of [place] arteries of extremities with rest pain, right leg: Status: Acute Plan: Right leg will probably need arterial intervention in the future (3) Chronic ischemic heart disease, unspecified: Status: Acute Plan: patient stable. will obtain all current hog killer notes. begin all home medications (4) Gout: Status: Acute Plan: home medications (5) Depression: Status: Acute Plan: home medications (6) Type 2 diabetes mellitus: Status: Chronic Plan: home medications and sliding scale insulin (7) Hyperlipidemia, mixed: Status: Chronic Plan: home medications (8) Hypothyroidism, acquired: Status: Chronic Plan: home medications (9) Hypertension, essential: Status: Chronic Plan: home medications (10) Gastro-esophageal reflux disease without esophagitis: Status: Acute Plan: home medications Review H&P Reviewed: Yes Patient was examined?: Yes
--- NOTE | 2024-04-15 08:26 | NOTE.SOAP ---
Soap Note Note for Day of Date of Exam: 04/15/24 Subjective Data Subjective Data: Patient seen this am; stilly complaining of pain in the posterior hip area down to the popliteal posteriorly (hamstring area) as well as her abdomen. Otherwise no constitutional symptoms. No changes Objective Data Objective Data: No clinical changes Nonstageable pressure ulcer with overlying escar. Dry and stable. No signs of infection including purulence, erythema or crepitus. Nonpalpable pulses to the left lower extremity. LLE is warm to cold from proximal to distal. Palpable knot near the IT band. Gross epicritic and protective sensation intact Assessment Assessment: - Decubitus ulcer, left heel - Critical limb ischemia - PAD - DM Plan Plan: Patient was seen bedside this afternoon. Wound care orders: mupirocin gauze, webril and RODOLFO wrap. Continue meds. Stat CTA with runoff ordered; pending creatinine to go down; dr. arora to take to surgery if creatinine does not go down. Heel must be offloaded at alll times with two pillows under the knee. Conservative care from a podiatry standpoint at this time
--- NOTE | 2024-04-15 23:33 | NOTE.SOAP ---
Soap Note Note for Day of Date of Exam: 04/15/24 Subjective Data Subjective Data: Patient with ischemic left foot and non healing wound to the left heel. No palpable pulse left femoral artery Objective Data Temperature: 98.7 F Pulse Rate: 99 Respiratory Rate: 22 Blood Pressure: 131/62 O2 Sat by Pulse Oximetry: 98 Objective Data: as above Assessment Assessment: critical ischemia left leg Plan Plan: Aortogram, arteriogram left leg, possible arterial intervention left leg.
[2024-04-16] MEDS ORDERED: HIBICLENS WASH ONE (04:37)
[2024-04-16] MEDS: HIBICLENS WASH EXT ONE (04:40)
--- NOTE | 2024-04-16 04:42 | EKG ---
Test Reason : PREOP Blood Pressure : */* mmHG Vent. Rate : 91 BPM Atrial Rate : 91 BPM P-R Int : 212 ms QRS Dur : 94 ms QT Int : 374 ms P-R-T Axes : 26 -37 -17 degrees QTc Int : 460 ms Sinus rhythm with 1st degree AV block Left axis deviation abnormal R wave progression - ? anterior mi Moderate voltage criteria for LVH, may be normal variant ( R in aVL , Mateusz product ) Nonspecific T wave abnormality Abnormal ECG No previous ECGs available Confirmed by Rashawn Irizarry MD ([id number]) on 04/16/2024 7:34:54 AM Referred By: Confirmed By: Rashawn Irizarry MD
[2024-04-16] MEDS: PHARMACY COMMENT IV ONE (08:00)
--- NOTE | 2024-04-16 08:31 | RAD ---
EXAMINATION:CHEST, 1 VIEWHISTORY:PRE-OP LLE CRITICAL ISCHEMIA, LEFT HEEL ULCER ; HTN, DM, GERD, HIATAL HERNIA, UTERINE AND CERVICAL CA SX: APPY, YUNI, HYST, ORTHO .COMPARISON STUDY:04/29/2021TECHNIQUE:A single view of the chest was obtained.FINDINGS:Left-sided Port-A-Cath with tip in the SVC. Heart size is enlarged. No acute infiltrates. There is no pneumothorax. Hilar and mediastinal structures and bony structures are unremarkable. Degenerative changes are present within the thoracic spine.IMPRESSION:No acute process in the chest.THIS IS AN ELECTRONICALLY VERIFIED FINAL REPORT04/16/2024 8:27 AM - Electronically signed by Helio Dorado MD
[2024-04-16 08:55] LABS: CREATININE 1.44 mg/dL (0.55-1.02)
[2024-04-16 09:14] LABS: VANCOMYCIN,TROUGH 21.3 ug/mL (15-20)
[2024-04-16] MEDS: NS 1,000 ML IV 1,000 ML ONE (11:36)
[2024-04-16] MEDS: NOZIN NASAL SANITIZER TP ONE (11:36)
[2024-04-16] MEDS: REGLAN INJ 10 MG VIAL ONE (12:39)
[2024-04-16] MEDS: PEPCID 20 MG VIAL ONE (12:39)
[2024-04-16] MEDS: ANCEF VIAL 1 GRAM ONE (12:39)
[2024-04-16] MEDS: NS 100 ML IV 100 ML ONE (12:39)
[2024-04-16] MEDS: FENTANYL VIAL INJ 100 mcg ONE (12:39)
[2024-04-16] MEDS: VERSED ONE (12:39)
[2024-04-16] MEDS: KETAMINE 50 MG/5 ML-NACL SYRNG ONE (12:39)
[2024-04-16] MEDS: ZOFRAN INJ 4 MG VIAL ONE (12:39)
[2024-04-16] MEDS: DIPRIVAN VIAL 20 ML ONE (12:39)
[2024-04-16] MEDS: VISIPAQUE 100 ML ONE (13:03)
[2024-04-16] MEDS: HEPARIN SODIUM IN D5W 75,000 UNITS/1,500 ML BAG ONE (13:03)
[2024-04-16] MEDS: VISIPAQUE 50 ML ONE (13:03)
[2024-04-16] MEDS: MARCAINE 0.5% ONE (13:03)
[2024-04-16] MEDS: HEPARIN SODIUM INJ 5000 UNITS ONE (13:05)
[2024-04-16] MEDS: PROTAMINE SULFATE 50 MG VIAL ONE (13:34)
--- NOTE | 2024-04-16 13:50 | OR.IMMED ---
IMMEDIATE POST-OP NOTE Immediate Post-Op Note Date of surgery/procedure: 04/16/24 Pre-Op Diagnosis: Critical left ischemia left leg, non-healing wound left heel, no palpable left femoral pulse Post-Op Diagnosis: same, left distal external iliac artery 90% stenosis Procedure: diagnostic aortogram , diagnostic arteriogram left leg , Intravascular l ultrasound left iliac artery , stenting left external iliac artery Description of Procedure: dictated Surgeon/Rubber Factory Worker: Ana Luisa Findings: 90% stenosis of the left distal external iliac artery , 1 vessel runof f via the left posterior tibial artery Estimated Blood Loss: < 100 cc Complications: none Discharge Progress Notes: to Floor
[2024-04-16] MEDS: XARELTO PO SCH (20:52)
[2024-04-16] MEDS: VANCOMYCIN IV *PREMIX 1.25 G/250 ML BAG 1.25 G/250 ML PIGGYBACK IV SCH (20:53)
[2024-04-17 06:00] VITALS: RESP 20
[2024-04-17 07:02] LABS: CARBON DIOXIDE 16.5 mmol/L (21-32); POTASSIUM 4.4 mmol/L (3.5-5.1)
[2024-04-17 07:14] LABS: CALCIUM 8.9 mg/dL (8.5-10.1); CREATININE 1.4 mg/dL (0.55-1.02)
--- NOTE | 2024-04-17 08:43 | NOTE.SOAP ---
Soap Note Note for Day of Date of Exam: 04/17/24 Subjective Data Subjective Data: Patient seen this am; resting and sleeping comfortably. Had vascular intervention yesterday, no complaints. Otherwise no constitutional symptoms. No changes Objective Data Objective Data: No clinical changes Nonstageable pressure ulcer with overlying escar. Dry and stable. No signs of infection including purulence, erythema or crepitus. Nonpalpable pulses to the left lower extremity. LLE is warm to cold from proximal to distal. Palpable knot near the IT band. Gross epicritic and protective sensation intact Assessment Assessment: - Decubitus ulcer, left heel - Critical limb ischemia - PAD - DM Plan Plan: Patient was seen bedside this morning. Placed home health wound care orders for santyl DSD every other day. Santyl to be applied daily in house. Vascular intervention performed yesterday. Podiatry treating conservatively at this time and will monitor in response to intervention. Patient can follow up with Dr. Chavarria next week or sooner if any problems arise
[2024-04-17] MEDS: SANTYL EXT SCH (09:15)
[2024-04-17] MEDS: BUTT CREAM (COMPOUND) TOP PRN (10:11)
--- NOTE | 2024-04-17 10:16 | W.DIS.FURT ---
Summary of Discharge Discharge Summary of Date Date of Exam: 04/17/24 Admission Date Date of Admission: 04/13/24 Admission Diagnosis Hospital Course: 63 year old female who presented with rest pain of the left leg with non-healing wound to the left heel. At the time of initial examination I could not feel a palpable pulse in the left groin. Her creatinine remained high despite rehydration and therefore a CT angiogram was not available. She was maintained on antibiotics and taken to the operating suite yesterday the 16 of April where she underwent arteriogram showing 90% stenosis of the left distal external iliac artery with normal superficial femoral artery of the left side and 1 vessel runoff of the left leg to the ankle via the posterior tibial artery . Stenting of the left external iliac artery was performed artery and she has done well. Dr. Chavarria will see her in follow up in 1 week to address the heel wound and I will see her in 1 week as well. She will continue on her usiual medications with the addition of aspirin 81 milligrams daily. Creatinine actually improved to 1.40 on day of discharge. Vital Signs: Vital Signs (72 hours) 04/14/24 11:40 04/15/24 23:33 04/14/24 17:21 Temperature 99.4 F 98.7 F Pulse Rate 83 99 H Pulse Rate [Left] Respiratory Rate 18 22 18 Blood Pressure 134/72 131/62 Blood Pressure [Left Arm] Blood Pressure [Right Arm] O2 Sat by Pulse Oximetry 99 98 Oxygen Delivery Method 04/14/24 10:38 04/14/24 12:00 04/14/24 16:00 Temperature 98.5 F 97.9 F Pulse Rate Pulse Rate [Left] 91 H 95 H Respiratory Rate 16 22 18 Blood Pressure Blood Pressure [Left Arm] 140/64 130/81 Blood Pressure [Right Arm] O2 Sat by Pulse Oximetry 96 97 Oxygen Delivery Method Room Air Room Air 04/14/24 19:30 04/14/24 15:55 04/14/24 16:25 Temperature Pulse Rate Pulse Rate [Left] Respiratory Rate 22 20 18 Blood Pressure Blood Pressure [Left Arm] Blood Pressure [Right Arm] O2 Sat by Pulse Oximetry Oxygen Delivery Method 04/14/24 18:21 04/14/24 19:50 04/14/24 22:36 Temperature 98.2 F Pulse Rate Pulse Rate [Left] 91 H Respiratory Rate 18 21 20 Blood Pressure Blood Pressure [Left Arm] Blood Pressure [Right Arm] 137/65 O2 Sat by Pulse Oximetry 98 Oxygen Delivery Method Room Air 04/15/24 04:01 04/14/24 20:00 04/14/24 19:00 Temperature Pulse Rate Pulse Rate [Left] Respiratory Rate 20 22 Blood Pressure Blood Pressure [Left Arm] Blood Pressure [Right Arm] O2 Sat by Pulse Oximetry Oxygen Delivery Method Room Air 04/15/24 00:00 04/14/24 23:06 04/15/24 04:00 Temperature 99.2 F 99.1 F Pulse Rate Pulse Rate [Left] 94 H 96 H Respiratory Rate 18 20 18 Blood Pressure Blood Pressure [Left Arm] Blood Pressure [Right Arm] 112/62 116/55 O2 Sat by Pulse Oximetry 95 98 Oxygen Delivery Method 04/15/24 04:31 04/15/24 07:00 04/15/24 08:00 Temperature 99.5 F Pulse Rate Pulse Rate [Left] 88 Respiratory Rate 20 20 Blood Pressure Blood Pressure [Left Arm] Blood Pressure [Right Arm] 119/57 O2 Sat by Pulse Oximetry 99 Oxygen Delivery Method Room Air Room Air 04/15/24 12:01 04/15/24 12:00 04/15/24 12:31 Temperature 98.6 F Pulse Rate Pulse Rate [Left] 93 H Respiratory Rate 20 18 18 Blood Pressure Blood Pressure [Left Arm] Blood Pressure [Right Arm] 135/60 O2 Sat by Pulse Oximetry 98 Oxygen Delivery Method Room Air 04/15/24 16:00 04/15/24 19:54 04/15/24 19:00 Temperature 97.9 F 98.7 F Pulse Rate Pulse Rate [Left] 94 H 99 H Respiratory Rate 23 22 Blood Pressure Blood Pressure [Left Arm] Blood Pressure [Right Arm] 128/61 131/62 O2 Sat by Pulse Oximetry 98 98 Oxygen Delivery Method Room Air Room Air Room Air 04/16/24 04:00 04/16/24 17:38 04/16/24 07:00 Temperature 98.3 F Pulse Rate Pulse Rate [Left] 92 H Respiratory Rate 20 18 Blood Pressure Blood Pressure [Left Arm] Blood Pressure [Right Arm] 140/62 O2 Sat by Pulse Oximetry 99 Oxygen Delivery Method Room Air Room Air 04/16/24 08:00 04/16/24 11:39 04/16/24 13:55 Temperature 98.0 F 98.4 F Pulse Rate 99 H Pulse Rate [Left] 85 90 Respiratory Rate 18 18 18 Blood Pressure 144/65 Blood Pressure [Left Arm] 135/61 115/56 Blood Pressure [Right Arm] O2 Sat by Pulse Oximetry 100 98 100 Oxygen Delivery Method Room Air Room Air 04/16/24 14:25 04/16/24 14:10 04/16/24 14:40 Temperature 98.4 F 98.6 F 98.4 F Pulse Rate Pulse Rate [Left] 93 H 90 90 Respiratory Rate 18 20 18 Blood Pressure Blood Pressure [Left Arm] 109/55 107/53 107/53 Blood Pressure [Right Arm] O2 Sat by Pulse Oximetry 100 100 Oxygen Delivery Method 04/16/24 14:55 04/16/24 15:55 04/16/24 16:55 Temperature 98.0 F 97.0 F L 97.0 F L Pulse Rate Pulse Rate [Left] 91 H 93 H 90 Respiratory Rate 18 18 18 Blood Pressure Blood Pressure [Left Arm] 114/58 113/56 115/51 Blood Pressure [Right Arm] O2 Sat by Pulse Oximetry 100 100 100 Oxygen Delivery Method 04/16/24 17:55 04/16/24 18:38 04/16/24 19:00 Temperature 98.0 F Pulse Rate Pulse Rate [Left] 92 H Respiratory Rate 20 18 Blood Pressure Blood Pressure [Left Arm] 122/66 Blood Pressure [Right Arm] O2 Sat by Pulse Oximetry 99 Oxygen Delivery Method Room Air 04/16/24 20:00 04/16/24 18:55 04/16/24 23:40 Temperature 99.1 F 99.1 F 99.0 F Pulse Rate Pulse Rate [Left] 89 89 86 Respiratory Rate 18 18 28 H Blood Pressure Blood Pressure [Left Arm] Blood Pressure [Right Arm] 98/50 98/50 87/51 O2 Sat by Pulse Oximetry 97 97 97 Oxygen Delivery Method Room Air Room Air 04/17/24 00:14 04/17/24 04:00 Temperature 99.4 F Pulse Rate Pulse Rate [Left] 87 Respiratory Rate 20 Blood Pressure Blood Pressure [Left Arm] Blood Pressure [Right Arm] 90/70 104/53 O2 Sat by Pulse Oximetry 96 Oxygen Delivery Method Room Air Labs: Laboratory Last Values WBC 7.3 X10^3/uL (3.6-10.0) 04/14/24 05:02 RBC 4.02 X10^6/uL (3.5-5.4) 04/14/24 05:02 Hgb 9.8 g/dL (12.0-16.0) L 04/14/24 05:02 Hct 32.3 % (36.0-47.0) L 04/14/24 05:02 MCV 80.4 fL (80.0-100.0) 04/14/24 05:02 MCH 24.5 pg (27.0-34.0) L 04/14/24 05:02 MCHC 30.5 g/dL (33.0-35.0) L 04/14/24 05:02 RDW 24.5 % (11.6-16.5) H 04/14/24 05:02 Plt Count 418 X10^3/uL (150.0-450.0) 04/14/24 05:02 Plt Count Comment Adequate (ADEQUATE) 04/14/24 05:02 MPV 7.2 fL (7.4-11.0) L 04/14/24 05:02 Neut % (Auto) 72.7 % (42.0-75.0) 04/14/24 05:02 Lymph % (Auto) 13.2 % (21.0-51.0) L 04/14/24 05:02 Dickinson % (Auto) 8.7 % (0.0-13.0) 04/14/24 05:02 Eos % (Auto) 4.4 % (0.9-2.9) H 04/14/24 05:02 Baso % (Auto) 1.0 % (0.2-1.0) 04/14/24 05:02 Neut # (Auto) 5.3 x10^3/uL (2.2-4.8) H 04/14/24 05:02 Lymph # (Auto) 1.0 X10^3/uL (1.3-2.9) L 04/14/24 05:02 Dickinson # (Auto) 0.6 x10^3/uL (0.3-0.8) 04/14/24 05:02 Eos # (Auto) 0.3 x10^3/uL (0.0-0.2) H 04/14/24 05:02 Baso # (Auto) 0.1 X10^3/uL (0.0-0.1) 04/14/24 05:02 Absolute Nucleated RBC 0.1 /100WBC 04/14/24 05:02 Plt Morphology Comment Normal (NORMAL) 04/14/24 05:02 RBC Morphology Abnormal (NORMAL) A 04/14/24 05:02 Hypochromasia Slight A 04/14/24 05:02 Anisocytosis 3+ A 04/14/24 05:02 Microcytosis Slight A 04/12/24 12:30 Sodium 137 mmol/L (136-145) 04/17/24 06:03 Corrected Sodium 139 mmol/L (136-145) 04/17/24 06:03 Potassium 4.4 mmol/L (3.5-5.1) 04/17/24 06:03 Chloride 108 mmol/L (98-107) H 04/17/24 06:03 Carbon Dioxide 16.5 mmol/L (21-32) L 04/17/24 06:03 BUN 17 mg/dL (7-18) 04/17/24 06:03 Creatinine 1.40 mg/dL (0.55-1.02) H 04/17/24 06:03 Est GFR (MDRD) Af Amer 49 (>60) L 04/17/24 06:03 Est GFR (MDRD) Non-Af 40 (>60) L 04/17/24 06:03 Glucose 179 mg/dL (65-99) H 04/17/24 06:03 POC Glucose (mg/dL) 151 mg/dL (65-99) H 04/17/24 05:30 Calcium 8.9 mg/dL (8.5-10.1) 04/17/24 06:03 Corrected Calcium 10.1 mg/dL (8.5-10.1) 04/14/24 05:02 Total Bilirubin 0.30 mg/dL (0.2-1.0) 04/14/24 05:02 AST 20 Units/L (15-37) 04/14/24 05:02 ALT 15 Units/L (12-78) 04/14/24 05:02 Alkaline Phosphatase 113 Units/L (46-116) 04/14/24 05:02 Total Protein 7.0 g/dL (6.4-8.2) 04/14/24 05:02 Albumin 2.4 g/dL (3.4-5.0) L 04/14/24 05:02 Globulin 4.6 g/dL (2.5-4.5) H 04/14/24 05:02 Albumin/Globulin Ratio 0.5 Ratio (1.1-2.1) L 04/14/24 05:02 Vancomycin Trough 21.3 ug/mL (15-20) H* 04/16/24 08:15 Reason For Visit: LLE CRITICAL ISHEMIA, LEFT HEEL ULCER Discharge Date Discharge Date: 04/17/24 Discharge Diagnosis All Active Problems (Updated 04/14/24 @ 23:54 by Naun Orosco) Atherosclerosis of [place] arteries of extremities with rest pain, left leg (Acute) Atherosclerosis of [place] arteries of extremities with rest pain, right leg (Acute) Chronic ischemic heart disease, unspecified (Acute) Type 2 diabetes mellitus (Chronic) Hypertension, essential (Chronic) Depression (Acute) Gout (Acute) Hyperlipidemia, mixed (Chronic) Gastro-esophageal reflux disease without esophagitis (Acute) Hypothyroidism, acquired (Chronic) Plan of Treatment: Continue with present treatment and follow up plan. Pt is to keep follow up appointment as instructed and take medications as ordered. Discharge Medications Discharge Medications: No Known Drug Allergies Allergy (Verified 04/12/24 14:23) CONTINUE taking the following medications allopurinol 100 mg tablet 100 mg PO QDAY 04/12/24 [History] atorvastatin 80 mg tablet 80 mg PO QDAY 04/12/24 [History] bempedoic acid 180 mg-ezetimibe 10 mg tablet (Nexlizet) 1 tab PO QDAY 04/12/24 [History] bupropion HCl 150 mg tablet,12 hr sustained-release 150 mg PO BID 04/12/24 [History] dapagliflozin propanediol 10 mg tablet (Farxiga) 10 mg PO QDAY 04/12/24 [History] finerenone 20 mg tablet (Kerendia) 20 mg PO QDAY 04/12/24 [History] glimepiride 4 mg tablet 4 mg PO QDAY 04/12/24 [History] hydrocodone 10 mg-acetaminophen 325 mg tablet 1 tab PO Q4H PRN Pain 04/12/24 [History] hydroxyzine pamoate 50 mg capsule 50 mg PO QID 04/12/24 [History] levothyroxine 200 mcg tablet 200 mcg PO QDAY 04/12/24 [History] losartan 100 mg tablet 100 mg PO QDAY PRN Hypertension 04/12/24 [History] metoprolol succinate 25 mg tablet,extended release 24 hr 25 mg PO QDAY 04/12/24 [History] omeprazole 40 mg capsule,delayed release 40 mg PO QDAY 04/12/24 [History] oxybutynin chloride 5 mg tablet,extended release 24 hr 5 mg PO QDAY 04/12/24 [History] ticagrelor 90 mg tablet (Brilinta) 90 mg PO BID 04/12/24 [History] tizanidine 4 mg tablet 4 mg PO QHS 04/12/24 [History] zolpidem 5 mg tablet 5 mg PO QPM 04/12/24 [History] Aspirin 81 mg , 1 po daily Discharge Disposition Assessment: see hospital course Discharge Plan Discharge Plan Hospital Course: 63 year old female who presented with rest pain of the left leg with non-healing wound to the left heel. At the time of initial examination I could not feel a palpable pulse in the left groin. Her creatinine remained high despite rehydration and therefore a CT angiogram was not available. She was maintained on antibiotics and taken to the operating suite yesterday the 16 of April where she underwent arteriogram showing 90% stenosis of the left distal external iliac artery with normal superficial femoral artery of the left side and 1 vessel runoff of the left leg to the ankle via the posterior tibial artery . Stenting of the left external iliac artery was performed artery and she has done well. Dr. Chavarria will see her in follow up in 1 week to address the heel wound and I will see her in 1 week as well. She will continue on her usiual medications with the addition of aspirin 81 milligrams daily. Creatinine actually improved to 1.40 on day of discharge. Patient Disposition: 06 HOME HEALTH SERVICE Condition: Stable Health Concerns: Post Hospitalization: new medications and changes needed to prevent readmission or further decline. Pt educated and given instructions on all concerns. Care Plan Goals: Problem: Pain/Alteration in Comfort Goal: Improve/ Resolve Pain; Achieve Pain Tolerance Instructions: Take pain medications as prescribed. Contact your primary care provider if your pain is unrelieved or worsens. Follow up with primary care provider as directed. Plan of Treatment: Continue with present treatment and follow up plan. Pt is to keep follow up appointment as instructed and take medications as ordered. Assessment: see hospital course Prescription drug monitoring program results: PDMP reviewed with concerns identified Prescriptions: New aspirin 81 mg tablet,chewable 81 mg PO QDAY Qty: 120 0RF Continued potassium chloride 20 MEQ tablet extended release 20 meq PO BID gabapentin 300 MG capsule 900 mg PO QID bupropion HCl 150 mg tablet sustained-release 12 hr 150 mg PO BID atorvastatin 80 mg tablet 80 mg PO QDAY tizanidine 4 mg tablet 4 mg PO QHS hydroxyzine pamoate 50 mg capsule 50 mg PO QID allopurinol 100 mg tablet 100 mg PO QDAY hydrocodone-acetaminophen 10-325 mg tablet 1 tab PO Q4H PRN (Reason: Pain) omeprazole 40 mg capsule,delayed release(DR/EC) 40 mg PO QDAY glimepiride 4 mg tablet 4 mg PO QDAY oxybutynin chloride 5 mg tablet extended release 24hr 5 mg PO QDAY levothyroxine 200 mcg tablet 200 mcg PO QDAY zolpidem 5 mg tablet 5 mg PO QPM metoprolol succinate 25 mg tablet extended release 24 hr 25 mg PO QDAY losartan 100 mg tablet 100 mg PO QDAY PRN (Reason: Hypertension) Brilinta 90 mg tablet 90 mg PO BID dapagliflozin propanediol [Farxiga] 10 mg tablet 10 mg PO QDAY Nexlizet 180-10 mg tablet 1 tab PO QDAY Kerendia 20 mg tablet 20 mg PO QDAY sucralfate 1 gram Tablet 1 g PO QID Follow ups/Referrals Follow ups/Referrals: RODRICK MORRIS [STAFF PHYSICIAN] - 1 WEEK Yanick Chavarria [CONSULTING PHYSICIAN] - 04/22/24 2:45 pm Naun Orosco [STAFF PHYSICIAN] - 04/24/24 9:15 am Instructions Instructions: Endovascular Therapy for Peripheral Vascular Disease, Care After Stand Alone Forms: Excuse From Work or School, Post Hospital Follow Up Care
[2024-04-17 16:04] VITALS: BP 118/66; PULSE 80; TEMP 98.4; O2SAT 97
[2024-04-18] MEDS ORDERED: PHARMACY COMMENT IV ONE (20:00)
--- NOTE | 2024-04-19 16:16 | DR.OPNOTE ---
OP NOTE Pre-Op Diagnosis: critical ischemia left leg with non healing wound Post-Op Diagnosis: same Procedure Date Date Of Procedure: 04/16/24 Procedure: PROCEDURE: DIAGNOSTIC AORTOGRAM, DIAGNOSTIC ARTERIOGRAM LEFT LEG, IVUS LEFT ILIAC ARTERY, STENTING LEFT EXTERNAL ILIAC ARTERY NARRATIVE : The patient was taken to the operative suite and placed in the supine position. The right groin and entire left leg were prepped and draped in sterile fashion. The patient was given intravenous sedation supervised by myself. Time out for the procedure obtained. Ultrasound used to identify the right femoral artery and the skin overlying it infiltrated with 0.5% Marcaine. Ultrasound then used to guide puncture of the right femoral artery and a 0.012 inch guide wire was placed. Incision made over the guide wire at the skin edge with a # 11 knife blade and a micro sheath placed over the guide wire into the right femoral artery The small guidewire exchanged for a 0.035 inch Advantage glide wire and the micro sheath exchanged for a 5 Fr vascular sheath. Patient given 5000 units of intravenous heparin. Omni catheter was placed over the guide wire into the aorta and diagnostic aortogram carried out with the power injector showing normal aorta with normal flow in the right iliac artery with severe stenosis of the distal left external iliac artery. Omni catheter was used to steer the guide wire down the left common iliac artery to the distal lef t external iliac artery . Omni catheter was exchanged for a Pike catheter and sequential arteriograms carried out of the left lower extremity showing normal left superrficial femoral and popliteal arteries with one vessel runoff via the left posterior tibial artery . The 5 Fr sheath in the right groin then exchanged for a 7 FrCatapult destination sheath which was parked in the proximal left common iliac artery . Pike catheter and the guide wire were used to traverse the arteries of the left leg ultimately ending in the left posterior tibial artery . This was selective catheterization. 0.035 inch wire removed and exchanged for a 0.014 inch wire. Over this wire we placed the Opitcross intravascular ultrasound probe and performed IVUS of the left distal external iliac artery showing 90 % stenosis of the distal left external iliac artery . Over this wire we placed an Rosalia 7 mmx 60 mm drug eluting stent and this balloon dilated with a 7mm Sterrling balloon. .At the completion of this a follow up arteriogram showed excellent result. All wires and devices removed. The 7 Fr Catapult sheath was pulled back into the aorta and a 0.035 inch wire placed. The destination sheath exchanged for an Angioseal device used to close the puncture of the right femoral artery. Dressing applied to the right groin. The patient taken to [facility] in good condition. Type of Anesthesia: Local (0.5% Marccaine ) Anesthesia Comment: plus MAC Findings: 90 % stenosis of distal left external iliac artery , one vessel run off left leg via the left posterior tibial artery Type of Fluids Used:: Lactated Ringers Total Amount of Fluid Infused:: 400cc Urine output: 300cc EBL: < 100cc Hardware: Rosalia 7mmx 60 mm stent Complications:: none Needle/Sponge Count:: correct Disposition/Condition: Pt. tolerated procedure without difficulty. Taken to [facility] in stable condition.
== END 2024-04-17 13:30 | disposition home health service (06) | DRG 254 ==
LOC: MED/SURG 11:24
PROVIDERS: ADMIT Surgery; ATTEND Surgery
DX: R94.31 Abnormal electrocardiogram [ECG] [EKG]; I25.10 Atherosclerotic heart disease of native coronary artery without angina pectoris; F32.89 Other specified depressive episodes; E78.2 Mixed hyperlipidemia; I70.223 Atherosclerosis of native arteries of extremities with rest pain, bilateral legs; M25.552 Pain in left hip; K21.9 Gastro-esophageal reflux disease without esophagitis; N18.9 Chronic kidney disease, unspecified; R45.6 Violent behavior; E03.8 Other specified hypothyroidism; L89.620 Pressure ulcer of left heel, unstageable; E11.621 Type 2 diabetes mellitus with foot ulcer; J44.9 Chronic obstructive pulmonary disease, unspecified; I12.9 Hypertensive chronic kidney disease with stage 1 through stage 4 chronic kidney disease, or unspecified chronic kidney disease; R06.02 Shortness of breath; Z01.810 Encounter for preprocedural cardiovascular examination; E11.65 Type 2 diabetes mellitus with hyperglycemia